=== PATIENT | female | born 1970 | race Caucasian/White ===

== ENCOUNTER 2018-06-02 08:27 | Day surgery (SDC) | payer OTHER ==
[~2018-06-02 08:27] MED LIST: CEFAZOLIN 2 GM/50 ML (PMX) 50 ML IVPB; DESFLURANE 15 MIN; LIDOCAINE 2% (SDV) 5 ML INJ; ROCURONIUM 50 MG INJ; SOD CHLORIDE 0.9% 1,000 ML IV; SUCCINYLCHOLINE CHLORIDE 100 MG/5 ML SYG IV
[2018-06-02] MEDS ORDERED: OXYCODONE/ACETAMINOPHEN (5/325) TAB PO (12:00)
[2018-06-02] MEDS ORDERED: PROPOFOL 20 ML (12:09)
[2018-06-02] MEDS ORDERED: MIDAZOLAM 1 MG/ML 2 ML INJ (12:10)
[2018-06-02] MEDS ORDERED: ROPIVACAINE 0.5 % 30 ML VIAL (12:15)
[2018-06-02] MEDS ORDERED: DEXAMETHASONE 4 MG/ML 5 ML INJ ×2 (12:15→12:32)
[2018-06-02] MEDS ORDERED: ONDANSETRON 4 MG INJ (12:32)
[2018-06-02] MEDS ORDERED: CEFAZOLIN 1 GM INJ (12:32)
[2018-06-02] MEDS ORDERED: FAMOTIDINE 20 MG INJ (12:33)
[2018-06-02] MEDS ORDERED: NEOSTIGMINE 3 MG/3 ML SYRINGE (13:00)
[2018-06-02] MEDS ORDERED: GLYCOPYRROLATE 0.4 MG INJ (13:00)
[2018-06-02] MEDS: HYDROmorphONE 1 MG/5 ML IV SYRINGE IV ×3 (13:21→13:36)
[2018-06-02] MEDS: MEPERIDINE 25 MG INJ IV (13:21)
[2018-06-02] MEDS: ONDANSETRON 4 MG INJ IV (13:22)
[2018-06-02] MEDS: HYDROCODONE/APAP (5/325) TAB PO (14:33)
== END 2018-06-02 16:20 | disposition home or self-care (01) ==
LOC: SDS 08:27
DX: K80.10 Calculus of gallbladder with chronic cholecystitis without obstruction (principal); E66.01 Morbid (severe) obesity due to excess calories; Z68.41 Body mass index [BMI] 40.0-44.9, adult
CPT/HCPCS: 47562; 84703; 88304

== ENCOUNTER 2018-06-05 10:03 | Emergency (ER) | payer OTHER | END 2018-06-05 13:30 | disposition home or self-care (01) | LOC: FTE 10:03 | DX: Z48.01 Encounter for change or removal of surgical wound dressing (principal); Z90.49 Acquired absence of other specified parts of digestive tract | CPT/HCPCS: 99281; Z7502 ==